=== PATIENT | male | born 1985 | race American Indian/Alaskan Native ===

== ENCOUNTER 2017-03-11 11:05 | Inpatient (IN) | payer OTHER ==
[2017-03-11] MEDS ORDERED: Albuterol-Ipratrop 3 mg / 0.5 (3 ml) UD IH STA (11:38)
--- NOTE | 2017-03-11 12:03 | ED PDOC ---
Arrival/HPI - General Chief Complaint: Cough, Cold, Congestion Time Seen by Provider: 03/11/17 11:07 Historian: Patient - History of Present Illness Narrative History of Present Illness (Text): 03/11/17 12:03 A 32 year old male, whose past medical history includes asthma, presents to the emergency department complaining of a non-productive cough for 1 week. Patient reports this worsened his asthma symptoms. Patient denies any fever, chills, nausea, vomiting, abdominal pain, chest pain or any other complaints. Patient reports he did not receive the flu shot. Patient has been using home nebulizer without relief. PMD: Dr. Bazan 03/11/17 14:46 Time/Duration: 1 week Symptom Course: Unchanged Context: Home Past Medical History - Provider Review Nursing Documentation Reviewed: Yes - Infectious Disease Hx of Infectious Diseases: None - Tetanus Immunization Tetanus Immunization: Unknown - Cardiac Hx Cardiac Disorders: No - Pulmonary Hx Asthma: Yes Hx Chronic Obstructive Pulmonary Disease (COPD): Yes - Neurological Hx Seizures: Yes - HEENT Hx HEENT Disorder: No - Renal Hx Renal Disorder: No - Endocrine/Metabolic Hx Endocrine Disorders: Yes - Hematological/Oncological Hx Blood Disorders: No - Integumentary Hx Dermatological Disorder: No - Musculoskeletal/Rheumatological Hx Arthritis: Yes ("Arthritis in Spine' as reported by mother.) - Gastrointestinal Hx Gastrointestinal Disorders: No Hx Gastroesophageal Reflux: Yes - Genitourinary/Gynecological Hx Sexually Transmitted Diseases: No - Psychiatric Hx Depression: Yes Hx Substance Use: Yes - Past Surgical History Past Surgical History: No Previous - Surgical History Hx Amputation: No Hx Appendectomy: No Hx Cardiac Catheterization: No Hx Cholecystectomy: No Hx Coronary Stent: No Hx Gastric Bypass Surgery: No Hx Hysterectomy: No Hx Joint Replacement: No Hx Kidney Transplant: No Hx Liver Transplant: No Hx Mastectomy: No Hx Musculoskeletal Surgery: No Hx Open Heart Surgery: No Hx Orthopedic Surgery: No Hx Splenectomy: No Hx Valve Replacement: No - Anesthesia Hx Anesthesia: No Hx Anesthesia Reactions: No Hx Malignant Hyperthermia: No - Suicidal Assessment Feels Threatened In Home Enviroment: No Family/Social History - Physician Review Nursing Documentation Reviewed: Yes Family/Social History: No Known Family HX Smoking Status: Current Some Days Smoker Hx Alcohol Use: No Hx Substance Use: Yes Substance used: cocaine Hx Substance Use Treatment: No Allergies/Home Meds Allergies/Adverse Reactions: Allergies No Known Allergies Allergy (Verified 03/11/17 11:28) Home Medications: Home Meds Medication Instructions Recorded Confirmed Unobtainable 03/11/17 03/11/17 Review of Systems - Physician Review All systems were reviewed & negative as marked: Yes - Review of Systems Constitutional: absent: Fevers, Night Sweats Respiratory: SOB, Cough, Wheezing. absent: Sputum Cardiovascular: absent: Chest Pain Gastrointestinal: absent: Abdominal Pain, Constipation, Diarrhea, Nausea, Vomiting Physical Exam Vital Signs Reviewed: Yes Vital Signs Temp Pulse Resp BP Pulse Ox 03/11/17 13:06 79 18 109/71 98 03/11/17 11:20 98.0 F 81 19 111/74 98 Temperature: Afebrile Blood Pressure: Normal Pulse: Regular Respiratory Rate: Normal Appearance: Positive for: Well-Appearing, Non-Toxic, Comfortable Pain Distress: None Mental Status: Positive for: Alert and Oriented X 3 - Systems Exam Head: Present: Atraumatic, Normocephalic Pupils: Present: PERRL Extroacular Muscles: Present: EOMI Conjunctiva: Present: Normal Mouth: Present: Moist Mucous Membranes Neck: Present: Normal Range of Motion Respiratory/Chest: Present: Good Air Exchange, Wheezes. No: Respiratory Distress, Accessory Muscle Use Cardiovascular: Present: Regular Rate and Rhythm, Normal S1, S2. No: Murmurs Abdomen: Present: Normal Bowel Sounds. No: Tenderness, Distention, Peritoneal Signs Back: Present: Normal Inspection Upper Extremity: Present: Normal Inspection, NORMAL PULSES. No: Cyanosis, Edema Lower Extremity: Present: Normal Inspection, NORMAL PULSES. No: Edema, CALF TENDERNESS Neurological: Present: GCS=15, CN II-XII Intact, Speech Normal Skin: Present: Warm, Dry, Normal Color. No: Rashes Psychiatric: Present: Alert, Oriented x 3, Normal Insight, Normal Concentration Medical Decision Making ED Course and Treatment: 03/11/17 12:03 Impression: A 32 year old male with a nonproductive cough Plan: -- Chest xray -- Labs -- Rapid flu A/B -- Duoneb and Solumedrol -- Reassess and disposition Progress Notes: Report Date : 03/11/2017 13:50:42 Procedure: Chest xray Dictator : Rubio Cintron MD IMPRESSION: Minimal linear scarring in the left lower lobe 03/11/17 13:51 On re-evaluation, patient with persistent wheezing. Labs are grossly normal. Flu negative. Spoke with Dr. Bazan, who is in agreement with plan. Will transfer patient to observation for asthma. - Lab Interpretations Lab Results: 03/11/17 12:34 03/11/17 12:34 Lab Results 03/11/17 12:34: Influenza Typ A,B (EIA) Negative for flu a/b 03/11/17 12:34: WBC 6.6 D, RBC 4.87, Hgb 14.0, Hct 41.9 L, MCV 86.0, MCH 28.7, MCHC 33.4, RDW 13.9, Plt Count 187, MPV 12.3 H, Gran % 65.4, Lymph % (Auto) 26.3 , [place] % (Auto) 3.8, Eos % (Auto) 4.0, Baso % (Auto) 0.5, Gran # 4.31, Lymph # 1.7, [place] # 0.3, Eos # 0.3, Baso # 0.03 03/11/17 12:34: Sodium 144, Potassium 4.2, Chloride 102, Carbon Dioxide 30, Anion Gap 16, BUN 12, Creatinine 1.1, Est GFR ( Amer) > 60, Est GFR (Non- Af Amer) > 60, Random Glucose 73, Calcium 9.7, Total Bilirubin 0.5, AST 34, ALT 34, Alkaline Phosphatase 58, Total Protein 7.3, Albumin 4.2, Globulin 3.1, Albumin/Globulin Ratio 1.4 I have reviewed the lab results: Yes - RAD Interpretation Radiology Orders: 03/11/17 11:38 CHEST TWO VIEWS (PA/LAT) [RAD] Stat - Medication Orders Current Medication Orders: Albuterol/Ipratropium (Duoneb 3 Mg/0.5 Mg (3 Ml) Ud) 3 ml INH [id number] TSERING Discontinued Medications Albuterol/Ipratropium (Duoneb 3 Mg/0.5 Mg (3 Ml) Ud) 3 ml IH STAT STA Stop: 03/11/17 11:39 Last Admin: 03/11/17 11:48 Dose: 3 ml Albuterol/Ipratropium (Duoneb 3 Mg/0.5 Mg (3 Ml) Ud) 3 ml IH Q15M TSERING Stop: 03/11/17 12:31 Last Admin: 03/11/17 12:40 Dose: 3 ml Methylprednisolone (Solu-Medrol) 125 mg IVP STAT STA Stop: 03/11/17 12:01 Last Admin: 03/11/17 12:25 Dose: 125 mg IVP Administration Document 03/11/17 12:25 OCS (Rec: 03/11/17 12:38 OCS [facility]) Charges for Administration # of IVP Administrations 1 - Scribe Statement The provider has reviewed the documentation as recorded by the Anjaliiblorraine Osman Provider Scribe Attestation: All medical record entries made by the Scribe were at my direction and personally dictated by me. I have reviewed the chart and agree that the record accurately reflects my personal performance of the history, physical exam, medical decision making, and the department course for this patient. I have also personally directed, reviewed, and agree with the discharge instructions and disposition. Disposition/Present on Arrival - Present on Arrival Any Indicators Present on Arrival: No History of DVT/PE: No History of Uncontrolled Diabetes: No Urinary Catheter: No History of Decub. Ulcer: No History Surgical Site Infection Following: None - Disposition Have Diagnosis and Disposition been Completed?: Yes Diagnosis: Asthma with status asthmaticus Disposition: HOSPITALIZED Disposition Time: 13:47 Patient Plan: Observation Condition: FAIR
[2017-03-11] MEDS: Albuterol-Ipratrop 3 mg / 0.5 (3 ml) UD IH SCH ×4 (12:10→18:59)
[2017-03-11 12:42] VITALS: BMI 24.1
[2017-03-11 12:45] LABS: BASO # 0.03 K/mm3 (0.0-2.0); BASO % 0.5 % (0.0-3.0); EOS # 0.3 (0.0-0.7); GRAN # 4.31 (1.4-6.5); GRAN % 65.4 % (50.0-68.0); LYMPH # 1.7 (1.2-3.4); LYMPH % 26.3 % (22.0-35.0); MEAN CORPUSCULAR HEMOGLOBIN 28.7 pg (25.0-35.0); MEAN CORPUSCULAR HGB CONC 33.4 g/dl (31.0-37.0); MEAN PLATELET VOLUME 12.3 fl (7.0-11.0); MONO # 0.3 (0.1-0.6); MONO % 3.8 % (1.0-6.0); RBC 4.87 10^6/uL (3.5-6.1); RED CELL DISTRIBUTION WIDTH 13.9 % (11.5-14.5); WHITE BLOOD COUNT 6.6 10^3/ul (4.5-11.0)
[2017-03-11 12:53] LABS: ALB/GLOB RATIO 1.4 (1.1-1.8); ALBUMIN 4.2 g/dL (3.0-4.8); ALT/SGPT 34 U/L (7-56); AST/SGOT 34 U/L (17-59); BLOOD UREA NITROGEN 12 mg/dL (7-21); CALCIUM 9.7 mg/dL (8.4-10.5); GFR AFRICAN-AMERICAN > 60; GFR NON-AFRICAN AMERICAN > 60
--- NOTE | 2017-03-11 13:52 | RAD ---
HISTORY: cough COMPARISON: 05/12/2016 TECHNIQUE: Chest PA and lateral FINDINGS: LUNGS: There is a linear density in the left lower lobe. This most likely represents an area of scarring. The lungs are otherwise clear PLEURA: No significant pleural effusion identified. No pneumothorax apparent. CARDIOVASCULAR: Normal. OSSEOUS STRUCTURES: No significant abnormalities. VISUALIZED UPPER ABDOMEN: Normal. OTHER FINDINGS: None. IMPRESSION: Minimal linear scarring in the left lower lobe
[2017-03-11] MEDS ORDERED: Albuterol-Ipratrop 3 mg / 0.5 (3 ml) UD INH SCH (15:30)
[2017-03-11] MEDS ORDERED: Albuterol-Ipratrop 3 mg / 0.5 (3 ml) UD IH PRN (16:24)
[2017-03-11] MEDS: MethylPREDNISolone 40 mg Vial IVP SCH (21:39)
--- NOTE | 2017-03-12 00:30 | HP ---
HISTORY OF PRESENT ILLNESS: Patient is a 32-year-old, known to me from office practice. Patient has been having increasing cough, congestion, shortness of breath. He has been using his inhaler, actually he has overused, with no significant relief. So, came to emergency room for further evaluation. Has been having cough, almost going on for 1 week. He denies any fever or chills. No history of nausea, vomiting, no diarrhea, no hemoptysis, no hematemesis. PAST MEDICAL HISTORY: 1. Significant for anxiety disorder. 2. History of bipolar disorder. 3. Gastroesophageal reflux disease. ALLERGIES: NOT ALLERGIC TO ANY MEDICATIONS. MEDICATIONS: At home, he is on Klonopin, ProAir two puff q.i.d., baclofen, methadone 180 mg daily, Neurontin. SOCIAL HISTORY: He lives with his mom. Currently disabled. Smokes a couple of cigarettes a day. Used to use alcohol, cocaine, and heroin and currently on methadone. REVIEW OF SYSTEMS: Significant for cough congestion, and shortness of breath. PHYSICAL EXAMINATION: GENERAL: He is awake, alert, oriented, communicative. VITAL SIGNS: His temperature 99.3, pulse 74, respiration 18, blood pressure 108/68. LUNGS: He has expiratory rhonchi, diffuse bilateral. HEART: S1 and S2 audible. ABDOMEN: Soft, nontender. No rebound. No guarding. NEUROLOGICAL: Patient is awake and alert, oriented, communicative. LABORATORY DATA: WBC 6.6, hemoglobin 14, hematocrit 41.9, platelet of 187. Chemistry: Sodium 144, potassium 4.2, chloride 102, CO2 of 30, BUN 12, creatinine 1.1, blood sugar of 73. Flu test is negative. ASSESSMENT: 1. Asthma exacerbation. 2. Asthmatic bronchitis. 3. History of anxiety disorder. 4. Questionable history of seizure disorder. PLAN: We will start patient on steroids and nebulizer treatment. Start him on Rocephin. We will reevaluate patient in the a.m. and make further recommendation. Missy Bazan MD
[2017-03-12] MEDS: Albuterol-Ipratrop 3 mg / 0.5 (3 ml) UD IH SCH ×5 (01:05→20:28)
[2017-03-12] MEDS: Pantoprazole 40 mg EC Tab PO SCH (05:52)
[2017-03-12] MEDS: MethylPREDNISolone 40 mg Vial IVP SCH ×2 (09:40→21:35)
[2017-03-12] MEDS: cefTRIAXone 1 gm 1 GM/100 ML BAG IVPB SCH (09:40)
--- NOTE | 2017-03-12 19:19 | PN ---
DATE: SUBJECTIVE: The patient is a 32-year-old, seen and examined, still has cough, congestion and wheezing. PHYSICAL EXAMINATION: VITAL SIGNS: He is afebrile, pulse 57, respirations 18, and blood pressure 106/55. LUNGS: Bilateral fair airflow, bilateral expiratory rhonchi with soft crackle. HEART: S1 and S2 audible. ABDOMEN: Soft, nontender. No rebound. No guarding. NEUROLOGICAL: The patient is awake, alert, and oriented. Able to communicate. ASSESSMENT: 1. Asthma exacerbation. 2. Bronchospasm. 3. Anxiety disorder. 4. Questionable history of seizure disorder. PLAN: We will continue the patient on IV steroid, continue nebulizer treatment, and he is on Rocephin, we will continue that, and we will reevaluate the patient. Missy Bazan MD
[2017-03-13] MEDS: Albuterol-Ipratrop 3 mg / 0.5 (3 ml) UD IH SCH ×4 (02:18→19:39)
[2017-03-13] MEDS: Pantoprazole 40 mg EC Tab PO SCH (06:03)
--- NOTE | 2017-03-13 09:19 | CON ---
DATE: 03/12/2017 He is being seen today in consultation. PRESENTATION: The patient is a 32-year-old male seen at bedside. He is wearing a nasal cannula and has an expiratory wheeze. Consultation was called due to history of substance abuse and depression. The patient was admitted to the hospital on 03/11/2017 for complaint of asthma. He had been coughing for about one week. He has been taking his asthma medications and using his home nebulizer without relief. The patient indicates that he feels that he is stable psychiatrically. His home psychiatric medications are prescribed by Dr. Bazan who also care medically. The patient indicates that he lives with his mother, he has number 3 or 4 siblings. They lives in an apartment. He has not been working for the last 4 months. He used to work at [employer], he got fired from [employer], but declined to explain to me what exactly happened there indicated that he had been working there a number of years. He has applied for SSI for asthma and herniated disk. The patient indicates that he was hospitalized here at [facility] for suicidal ideation and this was his second admission to this unit. He denies ever having a suicide attempt and no current suicidal ideations. CURRENT PSYCHIATRIC MEDICATIONS: Clonazepam 1 mg p.o. b.i.d. as ordered here in the hospital; however, the patient indicates that he normally takes 2 mg b.i.d. in consultation with the [facility] website. The patient does indeed get 2 mg b.i.d. last ordered by Dr. Gonzalez. He was given 60 pills on 02/20/2017 with no refill. The patient additionally is on Prozac 20 mg one p.o. daily and methadone 180 mg daily. This was verified by the nursing staff. She spoke with [facility] and his correct dosage is in fact [address] Bazan had ordered [address] Santana added an extra 80 mg to be given today and a full dosage of 180 mg to be given tomorrow. PAST MEDICAL HISTORY: Medically, the patient has asthma and herniated disk. Dr. Bazan is his doctor. He denies any illegal issues indicates that he does not have any history of using any drugs or alcohol and he denies ever being arrested or spending night in longterm or having any sort of illegal issue. FAMILY HISTORY: He denies any family history of substance abuse, mental health issues or suicide attempts, indicates his childhood was good, his father in 07/2016 and he is pretty much always lived with his mom. His other siblings are out on their own. He had special education in school, but did manage to graduate from high school. He had no further education after that. work in a [employer] place, indicated he had to lift heavy loads and this is where he hurt his back that he is seeking disability for now. MENTAL STATUS EXAMINATION: The patient is alert and oriented x3. Eye contact is good. Behavior is cooperative. Speech rate and volume are within normal limits. His mood is euthymic. His affect is full. His thoughts are goal directed. He denies being suicidal or homicidal. Denies the presence of hallucinations, delusions, or paranoia. His concentration and focus, he indicates as good. His memory both short-term and long-term is adequate. His appetite and sleep, he reports is normal. PHYSICAL EXAMINATION: CURRENT VITAL SIGNS: Include temperature of 97.7, pulse rate of 57, blood pressure 106/55 and O2 saturation of 96. ASSESSMENT: The patient is currently being treated with steroids and nebulizer treatment. DIAGNOSTIC IMPRESSION: Depressive disorder, unspecified. Asthma with chronic exacerbation. PLAN: The patient at this time is not suicidal or homicidal. He appears in no danger of hurting himself or others. He indicates that his methadone is purely for management of his pain not for any past history of drug or alcohol abuse and he is followed up with [facility] for that. He sees Dr. Bazan medically. She handles his antidepressant and Dr. Gonzalez has been ordering his Klonopin for him. His methadone has been ordered for tomorrow as his verified dosage of 180 mg daily. Of note, according to the [facility] website, the patient is in fact receiving Klonopin [address] Gonzalez, supposed to do 1 mg b.i.d that he is getting while in hospital. We will continue to follow. This patient was discussed with Dr. Santana. Thank you for this consult. Brittney Barajas APN [facility] # [id number]
[2017-03-13] MEDS: MethylPREDNISolone 40 mg Vial IVP SCH ×2 (11:16→22:58)
[2017-03-13] MEDS: cefTRIAXone 1 gm 1 GM/100 ML BAG IVPB SCH (11:16)
--- NOTE | 2017-03-13 11:40 | CON ---
DATE: 03/13/2017 NEUROLOGY CONSULTATION CHIEF COMPLAINT: Anxiety and seizure disorder. HISTORY OF PRESENT ILLNESS: The patient is a 32-year-old man known to me from my practice and history of anxiety disorder, bipolar disorder, gastroesophageal reflux disease, and questionable nonepileptic seizures, and history of heroin abuse on methadone, who presents with increased congestion and shortness of breath was found to have asthma exacerbation, it is being treated. I was consulted because of remote history of seizures. His seizures are mostly nonepileptic. His EEG in the past have been normal. He is on Neurontin one p.o. to p.o. b.i.d., which will help with his anxiety, as well as, his nonepileptic seizures. He is on Klonopin 1 mg p.o. twice a day for anxiety and is doing well. He was doing much better in terms of shortness of breath. No acute events overnight. PAST MEDICAL HISTORY: Anxiety disorder, bipolar disorder, heroin abuse, and gastroesophageal reflux disease. ALLERGIES: NO KNOWN DRUG ALLERGIES. MEDICATIONS: Reviewed by nurse's reconciliation. SOCIAL HISTORY: He lives with his mother. Currently disabled. He smokes couple of cigarettes a day. He used to be on alcohol, cocaine, and heroin in the past. He is currently on methadone. REVIEW OF SYSTEMS: A 14-point review of systems is negative except as per the HPI. PHYSICAL EXAMINATION: GENERAL: The patient is seen up in bed, in no acute distress. VITAL SIGNS: Temperature 98.6, pulse rate 70, blood pressure 136/65, respirations 19, and oxygen saturation 95% room air. HEENT: Atraumatic, normocephalic. PERRLA. Extraocular muscles are intact. NECK: Supple. No JVD. No adenopathy noted. LUNGS: Clear to auscultation. No adventitious sounds. HEART: S1 and S2. Normal rate and rhythm. No murmurs, rubs, or gallops. ABDOMEN: Soft, nontender, and nondistended. Bowel sounds are present. EXTREMITIES: No clubbing. No cyanosis. Peripheral pulses are 2+ felt bilaterally. NEUROLOGIC: The patient is alert and oriented to person, place, month, and year. Speech fluent without errors. Cranial nerves II through XII are intact. Motor exam: Moves all extremities equally. Toes are downgoing bilaterally. Sensory exam: Light touch, pinprick, proprioception, and vibration intact. DTRs are 2+ throughout. Coordination of [id number] intact. Gait is deferred for now. LABORATORY DATA: No new labs done today. His CMP on 03/11/2017 was unremarkable. ASSESSMENT AND PLAN: This is a 32-year-old male with past medical history of asthma, anxiety, bipolar disorder, gastroesophageal reflux disease came in with shortness of breath and congestion and found to have asthma exacerbation, it is being treated. He was consulted for his remote history of seizure. His seizures are not as evident at this time. He is on gabapentin 300 mg p.o. twice a day. He also has anxiety and bipolar disorder, gabapentin in combination with Klonopin. At this time, he is clinically stable. Followup with me as an outpatient. Thank you for this consult. Rayo Gonzalez MD
--- NOTE | 2017-03-13 15:38 | PN ---
DATE: SUBJECTIVE: The patient is 32 years old, seen and examined, still has cough, congestion, wheezing. PHYSICAL EXAMINATION: VITAL SIGNS: He is afebrile, pulse 58, respirations 19, blood pressure 136/65. LUNGS: Bilateral rhonchi, better than yesterday. Patient has no crackles. HEART: S1 and S2 audible. ABDOMEN: Soft, nontender. No rebound. No guarding. NEUROLOGICAL: He is awake, alert, oriented, communicative. LABORATORY EXAM: Flow test is negative. ASSESSMENT: 1. Asthma exacerbation. 2. Anxiety disorder. 3. Questionable seizure disorder. PLAN: Currently, the patient is on nebulizer treatment. We will continue his psych medication including 180 mg of methadone. He is getting Neurontin. He is on nicotine patch. We will continue his usual psych medication. He is on Rocephin, and I will increase his methylprednisolone to 40 mg. Will be re-evaluated by Dr. Gonzales. Disposition plan in a day or two. Missy Bazan MD
[2017-03-13] MEDS: Magnesium Hydroxide Susp 30 ml UD PO SCH (18:19)
--- NOTE | 2017-03-13 22:31 | CON ---
DATE: HISTORY OF PRESENT ILLNESS: The patient is a 32-year-old -[place] male, who is being followed by Psychiatry due to depression and anxiety. I reviewed Brittney Barajas APN's, progress note from yesterday and that was at patient's bedside. The patient remains alert and well oriented. He is coherent, goal-directed, and has been in good control in the unit. Reports anxiety issues and that his prescribed Klonopin is too low that he usually gets 2 mg twice a day. Regarding his depression, he feels better, and he is hopeful. He is not hallucinating. Delusions are not elicited, and his affect is generally congruent with his reported mood. Insight and judgment are completely fair at this time. Vital signs and laboratory results were reviewed by this provider. Relevant psychiatric medications include Klonopin 1 mg p.o. b.i.d., Prozac 20 mg daily, Neurontin 300 mg p.o. b.i.d., methadone 180 mg daily. IMPRESSION: Major depression by history, generalized anxiety disorder by history, rule out benzodiazepine dependency. RECOMMENDATIONS: At this time, we will continue his current medications. I will increase Prozac to 30 mg daily to address increased anxiety and keep Klonopin 1 mg p.o. b.i.d. The patient does report dependency on this medication. We will try to minimize benzodiazepine use in favor of optimizing Prozac due to concurrent prescription of methadone 180 mg daily. Psychiatry will continue to follow up the patient p.r.n. Please reconsult if there are any major issues in patient's presentation. Adriana Osorio MD
[2017-03-14] MEDS: Albuterol-Ipratrop 3 mg / 0.5 (3 ml) UD IH SCH ×4 (01:45→20:14)
[2017-03-14] MEDS: Pantoprazole 40 mg EC Tab PO SCH (05:36)
--- NOTE | 2017-03-14 08:24 | PN ---
DATE: 03/14/2017 SUBJECTIVE: The patient has no complaints of any chest pain. He says that his shortness of breath has improved, but still not back to normal. PHYSICAL EXAMINATION: VITAL SIGNS: Temperature is 98, pulse is 66, blood pressure is 129/88, respirations 20. GENERAL: The patient is lying in bed, flat, comfortable. HEENT: No oral lesion. Anicteric sclerae. Moist mucosa. NECK: No JVD, adenopathy, or thyromegaly. CARDIOVASCULAR: S1 and S2, regular. No murmurs, rubs, or gallops. LUNGS: Clear to auscultation bilaterally. No wheeze, rales, or rhonchi. ABDOMEN: Bowel sounds are positive, soft, nontender and nondistended. EXTREMITIES: no cyanosis, clubbing or edema. LABORATORY DATA: White count of 6.6, hemoglobin is 14. Creatinine is 1.1. ASSESSMENT: 1. Acute asthma exacerbation. 2. Anxiety. 3. Questionable seizure disorder. 4. Smoking. PLAN: The patient is going to continue his methadone. The patient is on Neurontin for neuropathy. He is on nicotine patch for smoking. The patient is on Solu-Medrol. He is going to continue Rocephin. He is on a renal diet. He will be seen by Dr. Gonzalez. We will continue current management. José Miguel Urbina MD
[2017-03-14] MEDS: MethylPREDNISolone 40 mg Vial IVP SCH ×2 (09:30→22:43)
[2017-03-14] MEDS: cefTRIAXone 1 gm 1 GM/100 ML BAG IVPB SCH (09:33)
[2017-03-14] MEDS: Magnesium Hydroxide Susp 30 ml UD PO SCH (09:34)
[2017-03-14] MEDS ORDERED: Magnesium Hydroxide Susp 30 ml UD PO SCH (10:00)
[2017-03-14 16:39] VITALS: BP 122/77; RESP 19; TEMP 97.6; O2SAT 95
[2017-03-15] MEDS: Albuterol-Ipratrop 3 mg / 0.5 (3 ml) UD IH SCH ×2 (02:33→08:12)
[2017-03-15] MEDS: Pantoprazole 40 mg EC Tab PO SCH (08:18)
[2017-03-15] MEDS: MethylPREDNISolone 40 mg Vial IVP SCH (09:21)
[2017-03-15] MEDS: Magnesium Hydroxide Susp 30 ml UD PO SCH (09:21)
[2017-03-15] MEDS: cefTRIAXone 1 gm 1 GM/100 ML BAG IVPB SCH (09:23)
[2017-03-15 10:57] VITALS: PULSE 72
--- NOTE | 2017-03-16 09:55 | DS ---
HISTORY OF PRESENT ILLNESS: This is a 32-year-old male who had come into the hospital because of acute asthma exacerbation. The patient was started on IV antibiotics with Rocephin. He was given nebulizer treatment and placed on Solu-Medrol. He had improvement of his symptoms. The patient is currently comfortable and no complaints of any chest pain. No shortness of breath. No headaches or dizziness. The patient has improvement of his symptoms. He is ambulating better. His shortness of breath is better. He is going to be discharged home today. He still has shortness of breath with exertion, but it is significantly better. He has no complaints of any headache or dizziness. PHYSICAL EXAMINATION: VITAL SIGNS: Temperature is 97.6, pulse is 76, blood pressure is 122/77, respirations 19, O2 saturation 95%. GENERAL: The patient is lying in bed, flat, comfortable. HEENT: No oral lesion. Anicteric sclerae. Moist mucosa. NECK: No JVD, adenopathy, or thyromegaly. CARDIOVASCULAR: S1 and S2, regular. No murmurs, rubs, or gallops. LUNGS: Clear to auscultation bilaterally. No wheeze, rales, or rhonchi. ABDOMEN: Bowel sounds are positive, soft, nontender and nondistended. EXTREMITIES: No cyanosis, clubbing or edema. ASSESSMENT: 1. Acute asthma exacerbation. 2. Anxiety. 3. Smoking. 4. Bipolar disorder. PLAN: The patient is currently on methadone daily. He is on his Prozac for his anxiety. He is receiving Solu-Medrol. He is also on nebulizer treatment. He is going to be placed on Augmentin as an outpatient, and he is going to be on prednisone 40 mg b.i.d. to taper it of. Condition is stable. Activities, increase as tolerated. José Miguel Urbina MD
--- NOTE | 2017-03-17 09:20 | CP.PCM.PCO ---
Physician Communication Note - Physician Communication Note Physician Communication Note: pt was discharged
== END 2017-03-15 11:03 | disposition home or self-care (01) | DRG 96 ==
LOC: ED 11:05 → ERH 13:48 → 3RNO 15:10 → OBSVTOIN 03-13 15:10
PROVIDERS: ADMIT Internal Medicine; ATTEND Internal Medicine
DX: J45.901 Unspecified asthma with (acute) exacerbation (principal); F11.20 Opioid dependence, uncomplicated; F17.210 Nicotine dependence, cigarettes, uncomplicated; F41.1 Generalized anxiety disorder; F31.9 Bipolar disorder, unspecified; K21.9 Gastro-esophageal reflux disease without esophagitis; G40.89 Other seizures; G62.9 Polyneuropathy, unspecified